=== PATIENT | male | born 1950 | race American Indian/Alaskan Native ===

== ENCOUNTER 2020-03-06 10:00 | Outpatient (CLI) | payer MEDICARE ==
[2020-03-06 11:04] LABS: Blood Urea Nitrogen 16 mg/dL (9-20)
--- NOTE | 2020-03-09 12:04 | Cat Scan Report ---
CT ABDOMEN WITH CONTRAST INDICATION / CLINICAL INFORMATION: FREQUENCY OF MICTURITION. TECHNIQUE: Axial CT images were obtained through the abdomen after 100 mL of Omnipaque [address] All [address] scans at this location are performed using CT dose reduction for ALARA by means of automate d exposure control. COMPARISON: None available. FINDINGS: LOWER CHEST: No significant abnormality. LIVER: No significant abnormality. GALLBLADDER: Cholelithiasis without CT evidence of cholecystitis. BILE DUCTS: No significant abnormality. PANCREAS: No significant abnormality. SPLEEN: No significant abnormality. ADRENALS: No significant abnormality. KIDNEYS/ URETER: The kidneys enhance symmetrically. There are multiple bilateral renal cysts, largest located within the lower pole the right kidney, measuring 8.6 x 8.5 cm (series 3 image 307). There i s also a 9 mm hyperdense lesion at the posterior aspect of the midpole the left kidney (series 3 imag e 254). Visualized portions of the ureters are unremarkable. No hydronephrosis. STOMACH/BOWEL: Stomach and small bowel are within normal limits, as visualized. There is portions of the colon demonstrates scattered diverticula without evidence of diverticulitis. No evidence of obstr uction. PERITONEUM: No free fluid. No free air. No fluid collection. LYMPH NODES: No significant adenopathy. AORTA / ARTERIES: No significant abnormality. IVC / VEINS: No significant abnormality. ADDITIONAL FINDINGS: None. SKELETAL SYSTEM: No significant abnormality. Scatter degenerative changes with moderate disc space he ight loss and degenerative disc disease at L5-S1. IMPRESSION: 1. Indeterminate 9 mm left renal lesion. This may represent a hyperdense cyst, though is incompletely characterized on current study and further evaluation with MRI is recommended. 2. Multiple bilateral renal cysts, largest located within the lower pole of the right kidney, measuri ng up to 8.6 cm. 3. Other chronic and incidental findings as above. Signer Name: Miguel Shah MD Signed: 03/06/2020 12:41 PM Workstation Name: [employer]
== END 2020-03-06 12:00 | disposition home or self-care (01) ==
LOC: CT 10:00
PROVIDERS: ATTEND Urology
DX: N28.1 Cyst of kidney, acquired (principal); K80.20 Calculus of gallbladder without cholecystitis without obstruction; M47.817 Spondylosis without myelopathy or radiculopathy, lumbosacral region; K57.30 Diverticulosis of large intestine without perforation or abscess without bleeding; R35.0 Frequency of micturition
CPT/HCPCS: 36415; 74160; 82565; 84520; Q9967